=== PATIENT | female | born 1990 | race Caucasian/White ===

== ENCOUNTER 2018-10-19 15:33 | Outpatient (RCR) | payer BC | END 2018-10-19 16:09 | disposition home or self-care (01) | PROVIDERS: ATTEND Nurse Practitioner Primary Care | DX: M54.41 Lumbago with sciatica, right side (principal); M54.42 Lumbago with sciatica, left side ==

== ENCOUNTER → 2022-10-15 | Outpatient (CLI) | payer OTHER | LOC: CARDFS 13:49 | PROVIDERS: ATTEND Nurse Practitioner Family | DX: R07.9 Chest pain, unspecified (principal) | CPT/HCPCS: 93306 ==

== ENCOUNTER → 2022-12-16 | Outpatient (CLI) | payer OTHER ==
[2022-12-16 10:55] VITALS: BP 108/64
--- NOTE | 2022-12-17 07:45 | Cardiology Stress Test Report ---
Stress Test Report Date of Procedure/Referring: Date of Procedure: December 16, 2022 PCP Yudelka Colón Aprn Admitting Physician Admitting Physician: Attending Physician: Daly Monreal Indications: CP Baseline Heart Rate: 94 Baseline Blood Pressure: Blood Pressure Systolic: 108 Blood Pressure Diastolic: 64 Baseline EKG: Baseline EKG: NSR Summary/Conclusion: Summary: In summary, the patient started exercising with a baseline heart rate, blood pressure and EKG mentioned above Patient was able to exercise for a total of 5 minutes on Masoud protocol, METs 7 Maximum heart rate 175 Maximum blood pressure 152/84 Stress EKG, Minimal nondiagnostic changes Recovery EKG , Return to baseline Conclusion: 1. Good exercise tolerance for a total of 5 minutes on Masoud protocol, 7 METs, achieving 93 percent of maximum expected heart rate 2. Minimal nondiagnostic EKG changes with exercise returned to baseline during recovery 3. No arrhythmia was noted Copy Copies To 1: [facility]SHALINI FAN MD December 17, 2022 07:45
== END ==
LOC: CARD 10:34
PROVIDERS: ATTEND Physician Assistant
DX: R07.89 Other chest pain (principal)
CPT/HCPCS: 93017